=== PATIENT | male | born 1980 | race Caucasian/White ===

== ENCOUNTER → 2020-12-01 23:31 | Emergency (ER) | payer OTHER, SELFPAY ==
--- NOTE | ~2020-12-01 | XR_ITS ---
EXAMINATION: XR chest 2V DATE: 12/01/2020 22:26 INDICATION: Shortness of breath. Chest pressure. TECHNIQUE: Frontal and lateral views of the chest were obtained. COMPARISON: None. FINDINGS: The chest demonstrates clear lungs without pneumonia, pleural effusion, or pneumothorax. Th e heart size is normal. IMPRESSION: 1. No acute cardiopulmonary disease. Reviewed, dictated and finalized at location A.
[2020-12-01 22:00] VITALS: BP 158/96; PULSE 88; RESP 20; TEMP 37.4; O2SAT 98
--- NOTE | 2020-12-01 22:07 | ED.CHESTPAIN ---
HPI - Chest Pain General Chief Complaint: Chest Pain Stated Complaint: high blood pressure,chest pain Time Seen by Provider: 12/01/20 22:05 Source: patient Mode of arrival: ambulatory Limitations: no limitations History of Present Illness HPI narrative: 40-year-old man with a history of smoking and hypertension comes in today complaining of chest pressure that started yesterday evening. It became worse this evening. Patient states that he felt nauseous with it but had no diaphoresis, lightheadedness, syncope, shortness of breath or palpitations. He denies prior similar symptoms. He has had no recent cough or cold symptoms, cough, or vomiting. He states he had a loose stool earlier today. He states he took a large tablet of aspirin approximately 1:00 p.m. this afternoon. His doctor told him he had some abnormal liver enzymes. MD complaint: chest pain Onset (ago): hour(s) (4) Timing of current episode: constant and other ( Resolving but not gone.) Onset: during rest Pain location: substernal and left chest Pain radiation: none Severity: moderate Quality: other (pressure) Relieving factors: nothing Exacerbating factors: nothing Associated symptoms: nausea and other ( Denies calf pain.) Treatment prior to arrival: aspirin Risk Factors Coronary artery disease risk factors: smoking history and hypertension Related Data Home Medications Medication Instructions Recorded Confirmed amlodipine 10 mg PO DAILY 12/01/20 12/01/20 hydroxyzine HCl 50 mg PO DIRECTED 12/01/20 12/01/20 lisinopril-hydrochlorothiazide 1 tablet PO DAILY 12/01/20 12/01/20 potassium chloride 10 meq PO DAILY 12/01/20 12/01/20 Allergies Allergy/AdvReac Type Severity Reaction Status Date / Time fexofenadine [From Lanny] Allergy Unknown Verified 12/01/20 22:38 Review of Systems Constitutional: Constitutional: Denies chills, Denies fever(s) and Denies weakness Eyes: Eyes: Denies change in vision and Denies photophobia ENT: Denies nasal congestion and Denies sore throat Cardiovascular: Cardiovascular: Reports chest pain and Denies radiating jaw, neck or arm pain Respiratory: Respiratory: Denies cough, Denies dyspnea and Denies wheezing Gastrointestinal: Gastrointestinal: Denies abdominal pain, Reports diarrhea, Reports nausea and Denies vomiting Musculoskeletal: Musculoskeletal: Denies arthralgias and Denies joint swelling Neurologic: Denies vertigo, Denies dizziness and Denies syncope Hematologic/Lymphatic: Hematologic/Lymphatic: Denies easy bleeding and Denies easy bruising Allergic/Immunologic: Allergic/Immunologic: Denies lip swelling and Denies throat swelling REPLACED BY [facility] Past Medical History Medical History (Updated 12/01/20 @ 23:23 by Ady Santos MD) Hypertension Social History Social History (Updated 12/01/20 @ 23:28 by Ady Santos MD) Smoking status: Current every day smoker Alcohol intake: current Alcohol use details: Daily Substance use: never Living arrangements: with family Exam Const: General: healthy appearing and alert Nutritional Appearance: obese Orientation/consciousness: patient oriented x3 Limitations: no limitations Other: mildly anxious. HENMT: Ears: external ears normal, TM's normal bilaterally and EAC's normal General nose exam: Normal nares present Face and sinus: normal facial exam Mouth: Yes moist mucous membranes Throat: posterior oropharynx normal Eyes: Conjunctivae: conjunctivae normal Pupils: Equal, round and reactive pupils present EOM: EOMs intact bilaterally Resp: Effort & Inspection: normal respiratory effort and not labored Auscultation: clear to auscultation bilaterally, no rales, no rhonchi and no wheezes Cardio: Rate: regular rate Rhythm: regular rhythm Heart sounds: no murmurs GI: GI Palp: Yes Soft to palpation and No Tenderness to palpation present (GI) Skin: General skin exam: normal color, no jaundice and no pallor Rashes: no rashes Neuro: Gener
--- NOTE | 2020-12-01 22:10 | ECG_ITS ---
Measurements Intervals [place] Rate: 90 P: 62 MI: 180 QRS: 42 QRSD: 108 T: 28 QT: 375 QTc: 461 Interpretive Statements SINUS RHYTHM BASELINE ARTIFACT- I, II, III, AVR, AVL, AVF, V1-V2 NORMAL ECG Electronically Signed On 12-02-2020 7:56:41 CDT by Emory Torres D.O.
[2020-12-01 22:17] VITALS: PULSE 88
[2020-12-01] MEDS: PANTOPRAZOLE SODIUM IV 40 MG VIAL IV PUSH (22:31)
[2020-12-01 22:42] LABS: Basophils Absolute Auto 0.02 K/mm3 (0.00-0.10); Basophils Percent Auto 0.3 % (0.0-1.0); Eosinophils Absolute Auto 0.15 K/mm3 (0.02-0.50); Eosinophils Percent Auto 2.4 % (1.0-6.0); Hematocrit 41.8 % (40.0-54.0); Hemoglobin 15.4 g/dL (14.0-18.0); Immature Granulocyte Absolute 0.02 K/mm3 (0.00-0.00); Immature Granulocyte Percent A 0.3 % (0.0-0.0); Immature Platelet Fraction Pct 6.7 % (1.0-7.0); Lymphocytes Absolute Auto 1.75 K/mm3 (1.10-4.50); Lymphocytes Percent Auto 28.5 % (18.0-42.0); Mean Corpuscular HGB Conc 36.8 g/dL (32.0-36.0); Mean Corpuscular Hemoglobin 33.6 pg (27.0-31.0); Mean Corpuscular Volume 91.1 fL (78.0-102.0); Mean Platelet Volume 11.1 fl (8.7-11.0); Monocytes Percent Auto 9.8 % (2.0-11.0); Neutrophils Absolute Auto 3.6 K/mm3 (1.7-7.2); Neutrophils Percent Auto 58.7 % (50.0-70.0); Platelet Count Result 62 K/mm3 (150-420); Red Blood Count 4.59 M/mm3 (4.70-6.10); Red Cell Distribution Width 12.7 % (11.6-14.4); White Blood Count 6.1 K/mm3 (4.8-10.8)
[2020-12-01 22:54] LABS: D Dimer 0.28 mg/L (0.19-0.50); INR 1.3; Partial Thromboplastin Time 33.4 SEC (23.90-30.70); Prothrombin Time 13.8 Seconds (9.50-12.10)
[2020-12-01 22:56] LABS: Add Urine Microscopic? YES; Appearance Urine Clear (Clear); Bilirubin Urine 2+ (Negative); Blood Urine Negative (Negative); Glucose Urine UA Negative (Negative); Ketones Urine 2+ (Negative); Leukocyte Esterase Ur Negative LEU/UL (Negative); Nitrate Urine Negative (Negative); Protein Urine Negative (Negative); Specific Grav Ur 1.015 (1.010-1.020); pH Urine 6.5 (5.0-8.0)
[2020-12-01 22:58] VITALS: BP 132/80; PULSE 86; RESP 20; O2SAT 98
[2020-12-01 23:02] LABS: Amphetamine Screen Urine Negative (Negative); Barbiturate Screen Urine Negative (Negative); Benzodiazepines Screen Urine Negative (Negative); Cannabinoid Screen Urine Positive (Negative); Cocaine Screen Urine Negative (Negative); Methadone Screen Urine Negative (Negative); Opiate Screen Urine Negative (Negative); Phencyclidine Screen Urine Negative (Negative)
[2020-12-01 23:03] LABS: Alanine Aminotransferase 50 U/L (16-63); Albumin Level 3.8 g/dL (3.4-5.0); Alkaline Phosphatase 104 U/L (46-116); Anion Gap 14 mmol/L (8-16); Aspartate Amino Transferase 55 U/L (15-37); Bilirubin,Total 2.8 mg/dL (0.00-1.00); Blood Urea Nitrogen 15 mg/dL (7-18); Calcium 8.8 mg/dL (8.5-10.1); Carbon Dioxide 22 mmol/L (21-32); Chloride 97 mmol/L (98-108); Estimated CRCL calculation 155 ml/min; Estimated Glomerular Filt Rate > 60; Glucose 110 mg/dL (70-99); Osmolality Calculated 277 mOsm/kg (285-295); Potassium 3.1 mmol/L (3.5-5.1); Sodium 133 mmol/L (136-145); Total Protein 8.6 g/dL (6.4-8.2); Troponin I 4.8 ng/L (0.00-60.4)
[2020-12-01 23:06] LABS: Color Urine Amber (Yellow); RBC Urine None seen /hpf (0-2); Squamous Epithelial Cell Urine None seen /hpf (Few); WBC Urine None seen /hpf (0-3)
[2020-12-01] MEDS: POTASSIUM CHLORIDE 20 MEQ TABLET 40 MEQ PO (23:23)
[2020-12-01 23:24] VITALS: BP 142/94; PULSE 87; RESP 20; TEMP 37.2; O2SAT 98
--- NOTE | 2020-12-01 23:34 | PC.NURSE ---
DISCUSSED WITH PT REGARDING ALCOHOLISM, OFFERED PAMPHLETS. PT DECLINED.
[2020-12-02 00:50] LABS: Bilirubin Direct 1.1 mg/dL (0-0.2)
[2020-12-02 00:55] LABS: Acetaminophen < 2 ug/mL (10-30)
[2020-12-05 13:39] LABS: Hepatitis A Antibody IgM Nonreactive; Hepatitis B Core Antibody Nonreactive (Nonreactive); Hepatitis B Surface Antigen Nonreactive (Nonreactive); Hepatitis C Signal to Cutoff 0.02 ratio (<1.00); Hepatitis C Virus Antibody Nonreactive (Nonreactive)
== END | disposition home or self-care (01) ==
PROVIDERS: Emergency Provider Emergency Medicine; PCP Family Medicine
DX: E80.6 Other disorders of bilirubin metabolism (principal); E87.6 Hypokalemia; D69.6 Thrombocytopenia, unspecified; R07.89 Other chest pain
CPT/HCPCS: 36415; 71046; 80053; 80074; 80307; 81001; 82248; 84484; 85025; 85055; 85380; 85610; 85730; 93005; 96374; 99283; 99284; A9270; C9113

== ENCOUNTER 2020-12-02 14:31 | Emergency (ER) | payer OTHER, SELFPAY ==
[2020-12-02 15:25] VITALS: BP 137/91; PULSE 87; RESP 16; TEMP 37.1; O2SAT 98
--- NOTE | 2020-12-02 17:38 | ED.GENADULT ---
HPI - General Adult General Chief complaint: Anxiety Stated complaint: anxiety, htn Time Seen by Provider: 12/02/20 16:51 History of Present Illness HPI narrative: Patient is a 40-year-old male who presents ER with anxiousness. He was seen in the ER last night at [facility] and had an unremarkable work-up with the exception of some hyperbilirubinemia and low potassium. He is able be discharged home. Third of his symptoms comes from alcohol withdrawal. He quit drinking 4 days ago and has been having shakes and anxiousness since then. This happens to him often when he quits drinking. Last time he quit drinking was 3 months ago and he had similar symptoms that were not as bad. He has never had an alcohol withdrawal seizure. Typically drinks 8 beers with just as many shots per day when he is drinking. Denies any chest pain or chest pressure right now. Just feels anxious and tense and shaky at times. Denies fevers or chills or sweats. No nausea or vomiting. No diarrhea. Called his PCPs office since he had been seen in the ER last night and they recommend him coming back to the ER for reevaluation. Related Data Home Medications Medication Instructions Recorded Confirmed amlodipine 10 mg PO DAILY 12/01/20 12/01/20 hydroxyzine HCl 50 mg PO DIRECTED 12/01/20 12/01/20 lisinopril-hydrochlorothiazide 1 tablet PO DAILY 12/01/20 12/01/20 potassium chloride 10 meq PO DAILY 12/01/20 12/01/20 Allergies Allergy/AdvReac Type Severity Reaction Status Date / Time fexofenadine [From Lanny] Allergy Unknown Verified 12/02/20 16:52 Review of Systems Review of Systems: All systems reviewed & are unremarkable except as noted in HPI and below Constitutional: Constitutional: Denies chills, Denies fever(s) and Denies weakness ENT: Denies nasal congestion and Denies sore throat Cardiovascular: Cardiovascular: Denies chest pain, Denies rapid heart rate and Denies radiating jaw, neck or arm pain Respiratory: Respiratory: Denies cough and Denies dyspnea Gastrointestinal: Gastrointestinal: Denies abdominal pain, Denies nausea and Denies vomiting Musculoskeletal: Musculoskeletal: Denies arthralgias and Denies muscle cramps Neurologic: Comments: Tremors Psychiatric: Psychiatric: Reports anxiety PMFSH Past Medical History Medical History (Updated 12/02/20 @ 19:57 by Tucker Barreto MD) Hypertension Social History Social History (Updated 12/01/20 @ 23:28 by Ady Santos MD) Smoking status: Current every day smoker Alcohol intake: current Substance use: never Gender identity (if verbalized by the patient): Male Exam Narrative: Exam Narrative: GENERAL: Mildly anxious-appearing, well-nourished, and in no acute distress. HEAD: Normocephalic, atraumatic. ENT: Mucous membranes moist. CHEST: Clear to auscultation. No respiratory distress. HEART: Regular rate and rhythm. Normal peripheral pulses. ABDOMEN: Soft, nontender, nondistended. EXTREMITIES: Normal range of motion. No edema. SKIN: Warm, dry, no rash. NEURO: Scant tremors. Alert and oriented x3. Course Course Emergency Course: Feels better with valium. D/c. F/u with PCP. Vital Signs Vital signs: Vital Signs Temperature 98.8 F 12/02/20 15:25 Pulse Rate 87 12/02/20 15:25 Respiratory Rate 16 12/02/20 15:25 Blood Pressure 137/91 H 12/02/20 15:25 Pulse Oximetry 98 12/02/20 15:25 Temperature 98.8 F 12/02/20 15:25 Pulse Rate 82 12/02/20 18:01 Respiratory Rate 16 12/02/20 18:01 Blood Pressure 142/85 H 12/02/20 18:01 Pulse Oximetry 100 12/02/20 18:01 Medical Decision Making Vital Signs Vital Signs: Vital Signs Temperature 98.8 F 12/02/20 15:25 Pulse Rate 87 12/02/20 15:25 Respiratory Rate 16 12/02/20 15:25 Blood Pressure 137/91 H 12/02/20 15:25 Pulse Oximetry 98 12/02/20 15:25 Temperature 98.8 F 12/02/20 15:25 Pulse Rate 82 12/02/20 18:01 Respiratory Rate 16 12/02/20 18:01 Blood Pressur
[2020-12-02] MEDS: diazePAM (*CRX) 5 MG TABLET PO (18:00)
[2020-12-02 18:01] VITALS: BP 142/85; PULSE 82; RESP 16; O2SAT 100
[2020-12-02 18:38] LABS: Basophils Percent Auto 0.6 % (0.2-1.2); Eosinophils Absolute Auto 0.1 K/mm3 (0-0.3); Eosinophils Percent Auto 1.9 % (0-4.4); Hematocrit 43.9 % (42.0-52.0); Hemoglobin 15.9 g/dL (14.0-18.0); Immature Granulocyte Absolute 0.01 K/mm3 (0.00-0.031); Immature Granulocyte Percent A 0.2 % (0-0.5); Immature Platelet Fraction Pct 9.5 % (0.9-11.2); Lymphocytes Absolute Auto 1.09 K/mm3 (0.9-3.2); Lymphocytes Percent Auto 20.2 % (18.3-44.2); Mean Corpuscular HGB Conc 36.2 g/dl (32-36); Mean Corpuscular Hemoglobin 33.3 pg (26-34); Mean Platelet Volume 11.2 fl (7.4-10.4); Monocytes Absolute Auto 0.5 K/mm3 (0.1-0.6); Monocytes Percent Auto 8.7 % (2.6-8.5); Neutrophils Absolute Auto 3.7 K/mm3 (1.3-6.7); Neutrophils Percent Auto 68.4 % (45.5-73.1); Platelet Count Result 67 k/mm3 (150-375); Red Blood Count 4.77 M/mm3 (4.6-6.20); Red Cell Distribution Width 12.7 % (11.5-14.5); White Blood Count 5.4 K/mm3 (4.5-10.0)
[2020-12-02 18:50] LABS: Alanine Aminotransferase 51 U/L (4-50); Albumin Level 4.5 g/dL (3.5-5.1); Alkaline Phosphatase 95 U/L (38-126); Anion Gap 11 mmol/L (8-16); Aspartate Amino Transferase 77 U/L (17-59); Bilirubin,Total 3.3 mg/dL (0.2-1.3); Blood Urea Nitrogen 13 mg/dL (9-20); Calcium 8.6 mg/dL (8.4-10.2); Carbon Dioxide 22 mmol/L (22-30); Chloride 104 mmol/L (98-107); Estimated CRCL calculation 224 ml/min; Estimated Glomerular Filt Rate > 60; Glucose 94 mg/dL (75-110); Lipase 149 U/L (23-300); Potassium 3.6 mmol/L (3.4-5.0); Sodium 137 mmol/L (137-145)
[2020-12-02 20:05] VITALS: BP 152/93; PULSE 74; RESP 16; TEMP 36.7; O2SAT 98
== END 2020-12-02 20:06 | disposition home or self-care (01) ==
PROVIDERS: Emergency Provider Emergency Medicine; PCP Family Medicine
DX: F10.239 Alcohol dependence with withdrawal, unspecified (principal); I10 Essential (primary) hypertension; Y90.9 Presence of alcohol in blood, level not specified
CPT/HCPCS: 36415; 80053; 83690; 85025; 85055; 99283; A9270

== ENCOUNTER → 2021-11-16 00:36 | Outpatient (CLI) | payer MEDICARE, SELFPAY ==
[2021-11-16 11:19] LABS: SARS-CoV-2 RNA PCR Negative
== END ==
PROVIDERS: PCP Family Medicine; Visit Provider Otolaryngology
DX: Z01.812 Encounter for preprocedural laboratory examination (principal); Z20.822 Contact with and (suspected) exposure to COVID-19
CPT/HCPCS: C9803; U0003; U0005

== ENCOUNTER 2021-11-16 08:45 | Outpatient (CLI) | payer MEDICARE, SELFPAY ==
[2021-11-16 09:46] LABS: Anion Gap 11 mmol/L (8-16); Blood Urea Nitrogen 8 mg/dL (9-20); Calcium 8.3 mg/dL (8.4-10.2); Carbon Dioxide 25 mmol/L (22-30); Chloride 107 mmol/L (98-107); Estimated Glomerular Filt Rate > 60; Glucose 93 mg/dL (65-110); Potassium 3.4 mmol/L (3.4-5.0); Sodium 143 mmol/L (137-145)
== END 2021-11-16 08:46 | disposition home or self-care (01) ==
LOC: ANHSURGERY 08:50
PROVIDERS: Anesthesiology; PCP Family Medicine; Visit Provider Otolaryngology
DX: Z01.818 Encounter for other preprocedural examination (principal); Z79.899 Other long term (current) drug therapy
CPT/HCPCS: 36415; 80048; C9803; U0003; U0005

== ENCOUNTER 2021-11-19 01:25 | Day surgery (SDC) | payer MEDICARE, SELFPAY ==
[2021-11-11 12:44] VITALS: BMI 34.7
--- NOTE | 2021-11-11 12:55 | PC.NURSE ---
Report to the Outpatient Waiting Room, entrance under the green pavilion located off [facility], at time 6:15 on date 11/19/21. OR Time: 8:15. - You and your visitor will be asked a series of questions to screen for COVID 19 for your protection. - A mask is required within the hospital. One visitor will be allowed to accompany the patient into the hospital. Patients visitor will be instructed to remain with patient at all times or leave the building. We will allow the visitor to come back to the postoperative area when patient is ready. Preoperative COVID Testing Requirements: COVID TEST 11/16 AT 8:30 No COVID Test needed if: (proof is required; if not received patient will have Rapid Test prior to entry) - Patient has received COVID Vaccine at least 14 days prior to procedure date or - Patient has positive COVID test result within last 90 days of surgery date. COVID Test needed if above criteria is not met If not COVID vaccinated a COVID test must be conducted within 72 hours of surgery and patient is asked to isolate self from time of testing until procedure. You will go to the [facility] for your COVID testing. The [facility] site is located at the corner of [address] [facility]. You will only be called if COVID results are positive and your surgeon may reschedule your elective surgery date. Patients may have clear liquids (water, carbonated beverages, clear teas, apple juice) until 3 hours prior to surgery (5:15) with a maximum of 20 ounces. - No food from midnight until time of surgery Take the following medications with a SIP of water the morning of surgery: AMLODIPINE, CITALOPRAM, VALIUM (IF NEEDED) Medications to discontinue per physician: VITAMINS/SUPPLEMENTS Date to take last dose: 11/15/21 Please no make-up, nail sinhala, hairspray, perfume, deodorant, or body powder the day of surgery. No jewelry (including any body piercings) or valuables the day of surgery, leave them at home. Please take a shower or bath the night before, or the morning of, surgery with an antibacterial soap. Wear comfortable, loose fitting clothing. - Jewelry must be removed prior to entering the operating room. Rings and piercings that are not removed may be cut off. - The hospital will not accept responsibility for valuables. - Please leave all valuables, including medications, at home the day of surgery. If you are going home after surgery, a licensed parts delivery driver must drive you home. - NO public transportation without another adult. - We recommend that an adult stay with you for 24 hours following discharge. - We also recommend that you do not drive, make important decision, drink alcoholic beverages, or take any drugs that were not prescribed by your health care provider for at least 24 hours after your discharge time. Follow any additional instructions given to you from your surgeon. Telephone instructions given to VALENCIA MANZANARES and asked if any additional questions and then verbalized understanding. Patient advised to call surgeon office or pre surgery nurse liaison [phone] if any additional questions.
--- NOTE | 2021-11-17 06:27 | PM.HPGS ---
History of Present Illness History of Present Illness Consent: Risks, benefits, and alternatives have been discussed and questions answered. Patient agrees to proceed with procedure. 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 that is annoying him PMFSH Past Medical History Medical History Hypertension Social History Social History Smoking packs per day: 0.5 Smoking cigarettes per day: 10.0 Years smoked: 25 Smoking pack-years: 12.50 Smoking status: Current some day smoker Tobacco type: cigarettes Alcohol intake: current Drinks per week: 12 Alcohol use details: Daily Substance use: current Substance use type: marijuana Gender identity (if verbalized by the patient): Male Spiritual care concerns: No Comments social family medical history all within normal limits noncontributory Meds Home Medications and Allergies Home Medications Medication Instructions Recorded Confirmed Type amlodipine 10 mg PO DAILY 12/01/20 11/11/21 History lisinopril-hydrochlorothiazide 1 tablet PO DAILY 12/01/20 11/11/21 History potassium chloride 10 meq PO DAILY 12/01/20 11/11/21 History diazepam [Valium] 5 mg PO BID PRN #6 tablet 12/02/20 11/11/21 Rx citalopram 20 mg PO DAILY 11/11/21 11/11/21 History Allergies Allergy/AdvReac Type Severity Reaction Status Date / Time fexofenadine [From Lanny] Allergy Anaphylaxis Verified 11/11/21 12:43 Exam Narrative: chest clear heart without murmurs abdomen soft extremities negative large papilloma on the uvul Assessment and Plan Additional Plan plan excision papilloma uvula
[2021-11-19] VITALS (9 sets, daily range): BP systolic 88–110; BP diastolic 63–74; PULSE 64–87; RESP 10–18; TEMP 37.3; O2SAT 92–98
--- NOTE | 2021-11-19 06:28 | WPDHPUPDATE1 ---
History and Physical Update Update Date/Time: 11/19/21 06:28 History and Physical has been reviewed, including an updated exam of the patient. There are NO changes in the patient's condition. Risks, benefits, and alternatives have been discussed and questions answered. Patient agrees to proceed with procedure.
--- NOTE | 2021-11-19 06:30 | WPDANESEPPF ---
Anes - Initial Pre Proc Eval Procedure: Operation Date: 11/19/21 07:30 Proposed Procedures p Excision of Papilloma Uvula - Lionel Saleem MD Date/Time: 11/19/21 06:30 Surgeon: Lionel Saleem MD Pre Op Diagnosis: Uvula Papilloma Patient Data Age: 41 Gender: M Height: 1.85 m Weight: 121.8 kg Allergies Allergy/AdvReac Type Severity Reaction Status Date / Time fexofenadine [From Lanny] Allergy Severe Anaphylaxis Verified 11/19/21 06:12 Home Medications Medication Instructions Recorded Confirmed Type amlodipine 10 mg PO DAILY 12/01/20 11/19/21 History lisinopril-hydrochlorothiazide 1 tablet PO DAILY 12/01/20 11/19/21 History potassium chloride 10 meq PO DAILY 12/01/20 11/19/21 History diazepam [Valium] 5 mg PO BID PRN #6 tablet 12/02/20 11/11/21 Rx citalopram 20 mg PO DAILY 11/11/21 11/19/21 History Patient hx anesthesia problems: none Family hx anesthesia problems: none Results Review: All pre-operative results and documents have been reviewed as part of the pre-operative evaluation. FOR[facility] Past Medical History Medical History Ankle fracture Anxiety Hypertension Obesity Retinal detachment Smoker Surgical History Surgical History (Updated 11/19/21 @ 06:37 by Jimenez Dunlap MD) H/O myringotomy History of ankle surgery History of detached retina repair Social History Social History Smoking packs per day: 0.5 Smoking cigarettes per day: 10.0 Years smoked: 25 Smoking pack-years: 12.50 Smoking status: Current some day smoker Tobacco type: cigarettes Alcohol intake: current Drinks per week: 12 Alcohol use details: Daily Substance use: current Substance use type: marijuana Living arrangements: alone Gender identity (if verbalized by the patient): Male Spiritual care concerns: No Anes - Eval Final PreProcedure Day of Procedure 11/19/21 06:30 Heart: regular rate and rhythm and murmur (II/ SM) Lungs: clear to auscultation Airway: Mallampati scale class III Neurological: alert and oriented Last oral intake: >/= 8 hours ASA classification: III Emergent: no Anesthetic plan: proceed Anesthesia type and monitoring: general ETT and standard monitoring Results Review: All pre-operative results and documents have been reviewed as part of the pre-operative evaluation. Informed Consent: The patient's anesthetic plan and its attendant risks and benefits were discussed with the patient/family/POA. Questions were solicited and answers provided to the satisfaction of the patient/family/POA.
[2021-11-19] MEDS: LACTATED RINGERS 1,000 ML 30 ML IV CONT (07:01)
[2021-11-19] MEDS: LIDO 1%/EPINEPHRINE/PF 1:200,000 30 ML VIAL 10 ML XX (07:30)
--- NOTE | 2021-11-19 07:35 | W.PM.PROC2 ---
Procedure Note - Detailed Date of Procedure 12/08/21 Pre-op Diagnosis Uvula Papilloma Post-op Diagnosis Same Procedure Performed Excision papilloma uvula Surgeon Lionel Saleem MD Description of Procedure Patient was prepped and draped in fashion general anesthesia the uvula was grasped injected xylocaine with adrenaline 2 papillomas were removed and cauterized with bipolar cautery Disposition PACU
--- NOTE | 2021-11-19 07:35 | W.PM.PROC2 ---
Procedure Note - Detailed Date of Procedure 11/19/21 Pre-op Diagnosis Uvula Papilloma Post-op Diagnosis Same Procedure Performed Excision 2 papillomas of the uvula Surgeon Lionel Saleem MD Description of Procedure Patient was prepped general anesthesia the uvula was grasped injected with xylocaine with adrenaline 2 uvular is were removed by bipolar ring the base and excising the Packing No Pathology Yes Disposition PACU
== END 2021-11-19 09:23 | disposition home or self-care (01) ==
PROVIDERS: PCP Family Medicine; Visit Provider Otolaryngology
PROC: (CPT 40810; principal; 2021-11-19 07:30)
DX: D10.39 Benign neoplasm of other parts of mouth (principal); I10 Essential (primary) hypertension; F41.9 Anxiety disorder, unspecified; E66.9 Obesity, unspecified; Z68.35 Body mass index [BMI] 35.0-35.9, adult; F17.210 Nicotine dependence, cigarettes, uncomplicated; F12.90 Cannabis use, unspecified, uncomplicated
CPT/HCPCS: 42104; 88304; 88305; J0330; J1100; J2250; J2405; J2704; J3010; J7120